=== PATIENT | male | born 1960 | race Caucasian/White ===

== ENCOUNTER 2022-10-07 11:09 | Outpatient (REF) | payer OTHER, SELFPAY ==
[2022-10-07 13:33] LABS: Iron 227 mcg/dL (45-160); Percent Iron Saturation 90 % (15-50); Total Iron Binding Capacity 252 mcg/dL (228-428); Unsaturated Iron Binding < 25 ug/dL
[2022-10-07 13:42] LABS: Ferritin 56 ng/mL (20-250)
== END 2022-10-07 11:10 | disposition home or self-care (01) ==
LOC: HO.BBR 11:09
PROVIDERS: Visit Provider Physician Assistant
DX: E83.110 Hereditary hemochromatosis (principal)
CPT/HCPCS: 36415; 82728; 83540

== ENCOUNTER 2022-12-30 15:02 | Outpatient (REF) | payer OTHER, SELFPAY ==
[2022-12-30 16:41] LABS: Iron 175 mcg/dL (45-160); Percent Iron Saturation 72 % (15-50); Total Iron Binding Capacity 244 mcg/dL (228-428); Unsaturated Iron Binding 69 ug/dL
[2022-12-30 16:57] LABS: Ferritin 48 ng/mL (20-250)
== END 2022-12-30 15:03 | disposition home or self-care (01) ==
LOC: HO.BBR 15:02
PROVIDERS: Visit Provider Physician Assistant
DX: E83.110 Hereditary hemochromatosis (principal)
CPT/HCPCS: 36415; 82728; 83540

== ENCOUNTER 2023-03-17 14:09 | Outpatient (REF) | payer OTHER, SELFPAY ==
[2023-03-17 15:55] LABS: Iron 215 mcg/dL (45-160); Percent Iron Saturation 90 % (15-50); Total Iron Binding Capacity 240 mcg/dL (228-428); Unsaturated Iron Binding < 25 ug/dL
[2023-03-17 16:09] LABS: Ferritin 46 ng/mL (20-250)
== END 2023-03-17 14:10 | disposition home or self-care (01) ==
LOC: HO.BBR 14:09
PROVIDERS: Visit Provider Physician Assistant
DX: E83.110 Hereditary hemochromatosis (principal)
CPT/HCPCS: 36415; 82728; 83540

== ENCOUNTER 2023-07-07 13:59 | Outpatient (REF) | payer OTHER, SELFPAY | END 2023-07-07 14:00 | disposition home or self-care (01) | LOC: HO.BBR 13:59 | PROVIDERS: Visit Provider Physician Assistant | DX: Z13.89 Encounter for screening for other disorder (principal) ==

== ENCOUNTER 2023-11-03 15:05 | Outpatient (REF) | payer OTHER, SELFPAY ==
[2023-11-03 15:29] LABS: MANUAL DIFF FLAG NO
[2023-11-03 15:32] LABS: Basophils Absolute Auto 0.1 X10*3/uL (0.0-0.2); Basophils Percent Auto 0.7 % (0-2); Eosinophils Absolute Auto 0.1 X10*3/uL (0.0-0.4); Eosinophils Percent Auto 1.9 % (0-4); Hematocrit 45.1 % (42.0-52.0); Hemoglobin 15.7 g/dl (14.0-18.0); Imm Gran Abs Auto 0.01 X10*3/uL (0.00-0.03); Imm Gran Pct Auto 0.1 % (0.0-0.4); Lymphocytes Absolute Auto 1.5 X10*3/uL (1.2-4.9); Lymphocytes Percent Auto 22.3 % (20-40); Mean Corpuscular HGB Conc 34.8 g/dl (31.0-36.0); Mean Corpuscular Hemoglobin 33.1 pg (27.0-33.0); Mean Corpuscular Volume 95.1 fL (80.0-98.0); Mean Platelet Volume 9.7 fL (9.4-12.4); Monocytes Absolute Auto 0.6 X10*3/uL (0.1-1.2); Monocytes Percent Auto 8.2 % (2-11); Neutrophils Absolute Auto 4.6 x10*3/uL (2.0-8.3); Neutrophils Percent Auto 66.8 % (45-73); Platelet Count 188 X10*3/uL (160-400); Red Blood Count 4.74 X10*6/uL (4.60-5.80); Red Cell Distribution Width 11.7 % (11.0-16.0); White Blood Count 6.9 X10*3/uL (4.8-10.8)
[2023-11-03 16:42] LABS: Ferritin 52 ng/mL (20-250)
== END 2023-11-03 15:06 | disposition home or self-care (01) ==
LOC: HO.BBR 15:05
PROVIDERS: Visit Provider Physician Assistant
DX: E83.110 Hereditary hemochromatosis (principal)
CPT/HCPCS: 36415; 82728; 85025

== ENCOUNTER 2024-03-01 14:54 | Outpatient (REF) | payer OTHER, SELFPAY | END 2024-03-01 14:55 | disposition home or self-care (01) | LOC: HO.BBR 14:54 | PROVIDERS: Visit Provider Physician Assistant | DX: Z13.89 Encounter for screening for other disorder (principal) ==

== ENCOUNTER 2024-09-16 13:57 | Outpatient (REF) | payer OTHER, SELFPAY | END 2024-09-16 13:58 | disposition home or self-care (01) | LOC: HO.BBR 13:57 | PROVIDERS: Visit Provider Internal Medicine | DX: Z13.89 Encounter for screening for other disorder (principal) ==

== ENCOUNTER 2025-01-12 15:04 | Outpatient (REF) | payer OTHER, SELFPAY | END 2025-01-12 15:05 | disposition home or self-care (01) | LOC: HO.BBR 15:04 | PROVIDERS: Visit Provider Internal Medicine | DX: Z13.89 Encounter for screening for other disorder (principal) ==

== ENCOUNTER 2025-05-04 14:58 | Outpatient (REF) | payer OTHER, SELFPAY | END 2025-05-04 14:59 | disposition home or self-care (01) | LOC: HO.BBR 14:58 | PROVIDERS: Visit Provider Internal Medicine | DX: Z13.89 Encounter for screening for other disorder (principal) ==